=== PATIENT | female | born 1995 | race African-American/Black ===

== ENCOUNTER 2018-06-20 14:06 | Emergency (ER) | payer BC, SELFPAY ==
[2018-06-20] MEDS ORDERED: Acetaminophen 500 MG TAB ONE (14:27)
[2018-06-20] MEDS ORDERED: Lidocaine 1% (PF) 30 ML VIAL ONE (15:02)
[2018-06-20] MEDS ORDERED: Azithromycin 250 MG TAB ONE (15:02)
[2018-06-20] MEDS ORDERED: cefTRIAXone\\ROCEPHIN 1 GM VIAL ONE (15:02)
[2018-06-20] MEDS ORDERED: Sodium Chloride 0.9% 100 ML ONE (15:04)
[2018-06-20 15:08] LABS: ALT (SGPT) 19 U/L (8-55); AST (SGOT) 20 U/L (5-34); Albumin 4.1 g/dL (3.5-5.0); Alkaline Phosphatase 103 U/L (40-150); Anion Gap 16 mmol/L (10-20); BUN (Urea Nitrogen) 6 mg/dL (7.0-18.7); Bilirubin, Total 0.4 mg/dL (0.2-1.2); Calc. Creatinine Clearance 0 mL/min (70-130); Calcium 9.4 mg/dL (7.8-10.44); Carbon Dioxide 18 mmol/L (22-29); Chloride 106 mmol/L (98-107); Estimated GFR-MDRD Greater than 90; Globulin 3.7 g/dL (2.4-3.5); Glucose 109 mg/dL (70-105); Lipase 7 U/L (8-78); Potassium 3.8 mmol/L (3.5-5.1); Protein, Total 7.8 g/dL (6.0-8.3); Sodium 136 mmol/L (136-145)
[2018-06-20 15:10] LABS: Band 2 % (5-11); Eosinophils 1 % (0-10); Hemoglobin 12.9 g/dL (12.0-16.0); Lymphocytes 5 % (21-51); MDiff Complete? YES; Mean Corpuscular HGB CONC 31.8 g/dL (32.0-36.0); Mean Corpuscular Hemoglobin 26.2 pg (27.0-31.0); Mean Corpuscular Volume 82.4 fL (78.0-98.0); Mean Platelet Volume 8.4 fL (7.4-10.4); Monocytes 4 % (0-10); Neutrophil 88 % (42-75); Platelet Count 238 thou/uL (130-400); RBC Distribution Width 14.6 % (11.5-14.5); Red Blood Cell (RBC) Count 4.92 mill/uL (4.20-5.40); White Blood Cell (WBC) Count 21.1 thou/uL (4.8-10.8)
[2018-06-20] MEDS ORDERED: Sodium Chloride 0.9% 1,000 ML ONE (15:18)
[2018-06-20] MEDS ORDERED: Ondansetron PF 4 MG/2 ML Vial ONE (15:18)
[2018-06-20] MEDS ORDERED: Morphine 4 MG/ML VIAL ONE (15:18)
[2018-06-20 15:32] LABS: Bilirubin Negative (Negative); Blood, Urine Small (Negative); Clarity Clear (Clear); Glucose, Urine (Dipstick) Negative (Negative); Leukocyte Negative (Negative); Nitrite Negative (Negative); Protein, Urine (Dipstick) Negative (Neg-Trace); Urobilinogen 0.2 mg/dL (0.2-1.0)
[2018-06-20 15:36] LABS: Pregnancy Test - Urine (BHCG) Negative (Negative); Pregu Control Background? CLEAR/WHITE (CLR/WHITE); Pregu Control Bar Appear? YES (CONTROL BAR)
[2018-06-20 15:38] LABS: RBC/HPF 0-3 HPF (0-3); Squamous Epithelial 0-3 HPF (0-3)
[2018-06-20] MEDS ORDERED: Ketorolac Tromethamine 30 MG/ML VIAL ONE (17:05)
--- NOTE | 2018-06-20 17:22 | CT ---
CT OF ABDOMEN AND PELVIS PERFORMED WITH CONTRAST ENHANCEMENT: 06/20/18 HISTORY: Severe abdominal pain to suprapubic region. The lung bases are clear. The liver, spleen, pancreas and gallbladder regions appear unremarkable. Right and left adrenal glands and right and left kidneys are normal in size. No evidence of obstructi on. No significant periaortic adenopathy. There is some mildly prominent mesenteric lymph nodes prese nt. CT OF PELVIS PERFORMED WITH CONTRAST ENHANCEMENT: The appendix is normal. Small follicles involving the adnexal region are noted. No free fluid, adenopathy or mass. No bony findings. IMPRESSION: Mildly prominent mesenteric lymph nodes raising the possibility of a mesenteric adenitis. POS: [facility]
== END 2018-06-20 17:40 | disposition home or self-care (01) ==
LOC: NAV ERS 14:06
DX: I88.0 Nonspecific mesenteric lymphadenitis (principal); A54.9 Gonococcal infection, unspecified; I10 Essential (primary) hypertension; F17.210 Nicotine dependence, cigarettes, uncomplicated
CPT/HCPCS: 74177; 80053; 81003; 81015; 81025; 83605; 83690; 85025; 87040; 87086; 96361; 96365; 96375; J0696; J1885; J2001; J2270; J2405; J7050

== ENCOUNTER 2022-11-05 09:18 | Emergency (ER) | payer SELFPAY ==
[2022-11-05] MEDS ORDERED: Ketorolac Tromethamine 30 MG/ML VIAL ONE (09:58)
== END 2022-11-05 10:05 | disposition home or self-care (01) ==
LOC: NAV ERS 09:18
DX: K02.9 Dental caries, unspecified (principal); F17.210 Nicotine dependence, cigarettes, uncomplicated
CPT/HCPCS: 99283; J1885

== ENCOUNTER 2023-01-27 15:38 | Emergency (ER) | payer SELFPAY | END 2023-01-27 16:17 | disposition home or self-care (01) | LOC: NAV ERS 15:38 | DX: J02.9 Acute pharyngitis, unspecified (principal); F17.210 Nicotine dependence, cigarettes, uncomplicated | CPT/HCPCS: 99283 ==